=== PATIENT | male | born 1960 | race Caucasian/White ===

== ENCOUNTER 2016-12-26 16:39 | Emergency (ER) | payer BC, OTHER ==
[~2016-12-26] VITALS: Ht 175.3 cm; Wt 83.1 kg
[2016-12-26 16:56] VITALS: BP 131/93
[2016-12-26] MEDS ORDERED: IBUP200T48 PO (17:47)
[2016-12-26 18:48] LABS: HEMATOCRIT 42.3 % (39.2-51.8); HEMOGLOBIN 14.2 g/dL (13.7-18.0); WHITE BLOOD COUNT 13.8 x10^3/uL (3.4-10)
[2016-12-26 18:58] LABS: BLOOD UREA NITROGEN 22 mg/dL (7-18)
== END 2016-12-26 20:15 | disposition home or self-care (01) ==
LOC: ED 19:40
DX: R10.32 Left lower quadrant pain (principal)
CPT/HCPCS: 36415; 74176; 80048; 81003; 82040; 85025; 99285